=== PATIENT | male | born 1990 | race American Indian/Alaskan Native ===

== ENCOUNTER 2017-03-01 14:44 | Emergency (ER) | payer MEDICAID ==
[2017-03-01 14:54] VITALS: RESP 16; TEMP 99.1
[2017-03-01] MEDS ORDERED: cefTRIAXone (Rocephin) 250 mg Inj IM STA (16:34)
[2017-03-01 17:18] LABS: PH,URINE 8.5 (4.7-8.0); URINE APPEARANCE CLEAR (CLEAR); URINE BILIRUBIN NEGATIVE (NEGATIVE); URINE BLOOD NEGATIVE (NEGATIVE); URINE COLOR LIGHT YELLOW (YELLOW); URINE GLUCOSE (UA) NEGATIVE (NEGATIVE); URINE LEUKOCYTE ESTERASE NEGATIVE Leu/uL (NEGATIVE); URINE NITRATE NEGATIVE (NEGATIVE); URINE PROTEIN NEGATIVE mg/dL (<30 mg/dL); URINE UROBILINOGEN 0.2 E.U./dL (<1 E.U./dL)
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
[2017-03-01 17:39] VITALS: BP 122/82; PULSE 76; O2SAT 99
== END 2017-03-01 17:36 | disposition home or self-care (01) ==
LOC: ED 14:44
DX: R30.0 Dysuria (principal)
CPT/HCPCS: 81003; 87086; 87491; 87591; 96372; 99284; J0696

== ENCOUNTER 2018-01-10 17:26 | Emergency (ER) | payer MEDICAID ==
[2018-01-10 17:46] VITALS: BMI 23.8
[2018-01-10] MEDS ORDERED: Sodium Chloride 0.9% 1,000 ML IV STA ×2 (17:48→20:09)
[2018-01-10 18:51] LABS: BASO # 0.05 K/mm3 (0.0-2.0); BASO % 0.7 % (0.0-3.0); EOS # 0.1 (0.0-0.7); EOS % 0.9 % (1.5-5.0); GRAN # 4.6 (1.4-6.5); GRAN % 61.4 % (50.0-68.0); HEMOGLOBIN 14.5 g/dL (14.0-18.0); LYMPH # 1.9 (1.2-3.4); LYMPH % 24.7 % (22.0-35.0); MEAN CELL VOLUME 89.1 fl (80.0-105.0); MEAN CORPUSCULAR HEMOGLOBIN 30.9 pg (25.0-35.0); MEAN CORPUSCULAR HGB CONC 34.7 g/dl (31.0-37.0); MONO # 0.9 (0.1-0.6); MONO % 12.3 % (1.0-6.0); RBC 4.69 10^6/uL (3.5-6.1); RED CELL DISTRIBUTION WIDTH 13.3 % (11.5-14.5); WHITE BLOOD COUNT 7.5 10^3/ul (4.5-11.0)
[2018-01-10 18:55] LABS: ACETAMINOPHEN < 10.0 ug/ml (10.0-20.0); SALICYLATE < 1 mg/dL (2.0-20.0)
[2018-01-10 18:57] LABS: ALB/GLOB RATIO 1.3 (1.1-1.8); ALBUMIN 4.5 g/dL (3.0-4.8); ALT/SGPT 29 U/L (7-56); AST/SGOT 26 U/L (17-59); BLOOD UREA NITROGEN 10 mg/dL (7-21); CALCIUM 9.3 mg/dL (8.4-10.5); GFR AFRICAN-AMERICAN > 60; GFR NON-AFRICAN AMERICAN > 60; LIPASE 43 U/L (23-300)
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
[2018-01-10 22:34] LABS: URINE APPEARANCE CLEAR (CLEAR); URINE BILIRUBIN NEGATIVE (NEGATIVE); URINE BLOOD NEGATIVE (NEGATIVE); URINE COLOR YELLOW (YELLOW); URINE GLUCOSE (UA) NEGATIVE (NEGATIVE); URINE LEUKOCYTE ESTERASE NEGATIVE Leu/uL (NEGATIVE); URINE PROTEIN TRACE mg/dL (<30 mg/dL)
[2018-01-10 22:39] LABS: URINE EPITHELIAL CELLS 0 - 2 /hpf (0-5); URINE WBC NEGATIVE /hpf (0-6)
[2018-01-10 22:56] LABS: BARBITURATES, UR NEGATIVE (NEGATIVE); BENZODIAZEPINES, UR NEGATIVE (NEGATIVE); OPIATES, UR NEGATIVE (NEGATIVE); PHENCYCLIDINE, UR NEGATIVE (NEGATIVE)
[2018-01-10 23:33] VITALS: BP 134/77; PULSE 76; RESP 17; TEMP 98.2; O2SAT 100
--- NOTE | 2018-01-11 07:54 | CARD ---
APPROVED REPORT EKG Measurement Heart [id number] <Conclusion> Normal sinus rhythm Possible Left atrial enlargement
--- NOTE | 2018-01-11 08:49 | RAD ---
HISTORY: chest pain COMPARISON: No prior. FINDINGS: LUNGS: No active pulmonary disease. PLEURA: No significant pleural effusion identified, no pneumothorax apparent. CARDIOVASCULAR: Normal. OSSEOUS STRUCTURES: No significant abnormalities. VISUALIZED UPPER ABDOMEN: Normal. OTHER FINDINGS: None. IMPRESSION: No active disease.
== END 2018-01-10 23:33 | disposition home or self-care (01) ==
LOC: ED 17:26
DX: T88.7XXA Unspecified adverse effect of drug or medicament, initial encounter (principal); T50.995A Adverse effect of other drugs, medicaments and biological substances, initial encounter; Y92.89 Other specified places as the place of occurrence of the external cause
CPT/HCPCS: 71045; 80053; 80320; 80324; 80329; 80345; 80346; 80349; 80353; 80358; 80361; 81001; 82550; 83690; 83992; 85025; 93005; 99284; J7030

== ENCOUNTER 2018-02-19 02:11 | Emergency (ER) | payer MEDICAID ==
[2018-02-19 02:12] VITALS: BMI 23.8
[2018-02-19 02:28] VITALS: O2SAT 97
[2018-02-19] MEDS ORDERED: cefTRIAXone (Rocephin) 250 mg Inj IM STA (02:56)
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
[2018-02-19 03:35] VITALS: BP 119/78; PULSE 83; TEMP 98.1
[2018-02-19 03:53] VITALS: RESP 91
== END 2018-02-19 03:38 | disposition home or self-care (01) ==
LOC: ED 02:11
DX: Z04.8 Encounter for examination and observation for other specified reasons (principal)
CPT/HCPCS: 87491; 87591; 96372; 99284; J0696

== ENCOUNTER 2018-09-20 20:52 | Emergency (ER) | payer MEDICAID ==
[2018-09-20 20:52] VITALS: BMI 23.8
[2018-09-20 21:04] VITALS: BP 121/78; PULSE 81; RESP 16; TEMP 98.3; O2SAT 98
[2018-09-20 21:42] LABS: URINE BILIRUBIN NEGATIVE (NEGATIVE); URINE BLOOD NEGATIVE (NEGATIVE); URINE GLUCOSE (UA) NEGATIVE (NEGATIVE); URINE LEUKOCYTE ESTERASE NEGATIVE Leu/uL (NEGATIVE); URINE PROTEIN NEGATIVE mg/dL (<30 mg/dL); URINE UROBILINOGEN 0.2 E.U./dL (<1 E.U./dL)
[2018-09-20 21:46] LABS: URINE APPEARANCE CLEAR (CLEAR); URINE COLOR YELLOW (YELLOW)
[2018-09-20] MEDS ORDERED: cefTRIAXone (Rocephin) 250 mg Inj IM STA (22:26)
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
== END 2018-09-21 00:35 | disposition home or self-care (01) ==
LOC: ED 20:52
DX: R30.0 Dysuria (principal)
CPT/HCPCS: 81003; 87491; 87591; 96372; 99283; J0696